=== PATIENT | male | born 1955 | race Caucasian/White ===

== ENCOUNTER 2018-04-06 23:47 | Inpatient (IN) | payer OTHER ==
[~2018-04-06] VITALS: Ht 177.8 cm; Wt 108.9 kg
[~2018-04-06 23:47] MED LIST: AMBEREN PO; ASPIRIN EC81 M1 PO; ASPIRIN325; BENAZEPRIL HCL5 MG PO; DIFLUCAN100 MG PO; GLUMETZA1000 PO; LANTUS SUBQ; LEVAQUIN 500 M500 M2 PO; LEVOTHYROXIN0.112 M1; MUCINEX DM TABL1 TA1 PO; NEURONTIN 300300 M1 PO; NEURONTIN600 MG PO; NOVOLOG100 UNIT/1 SUBQ; PROTONIX40 M1 PO; TIROSINT100 MCG PO; TRAMADOL 50 MG50 MG PO; VICODIN 5-5001 EACH PO; ZOFRAN ODT4 MG PO
[2018-04-06 23:51] VITALS: BP 175/88
[2018-04-07] MEDS ORDERED: PRILOSEC 20 MG20 MG PO
[2018-04-07] MEDS ORDERED: WELLBUTRIN XL300 MG PO (00:01)
[2018-04-07] MEDS ORDERED: XANAX 0.5 MG0.5 MG PO (00:02)
[2018-04-07 00:26] LABS: ABSOLUTE BASOPHILS 0.2 thou/uL (0.0-0.2); ABSOLUTE EOSINOPHILS 0.4 thou/uL (0.0-0.7); ABSOLUTE LYMPHOCYTES 2.5 thou/uL (0.8-5.3); ABSOLUTE MONOCYTES 0.9 thou/uL (0.0-1.2); ABSOLUTE NEUTROPHILS 6.3 thou/uL (1.6-8.1); BASOPHILS 1.5 %; EOSINOPHILS 3.7 %; HEMATOCRIT 49.3 % (42.0-52.0); HEMOGLOBIN 16.9 gm/dL (14.0-18.0); LYMPHOCYTES 24.2 %; MCH 30.4 pg (26.0-34.0); MCHC 34.4 g/dL (28.0-37.0); MCV 88.3 fL (80.0-100.0); MONOCYTES 8.7 %; MPV 8.9 fl. (7.2-11.1); NUCLEATED RBCS 0 /100WBC; PLATELET COUNT* 291 thou/uL (150-400); POLYS 61.9 %; RBC 5.58 mil/uL (4.50-6.00); RDW-CV 13.3 % (10.5-14.5); WBC 10.3 thou/uL (4.0-11.0)
[2018-04-07 00:31] LABS: CALCIUM 9.1 mg/dL (8.5-10.1); CREATININE 1.2 mg/dL (0.6-1.3); POTASSIUM 3.7 mmol/L (3.5-5.1)
[2018-04-07 00:32] LABS: INR 0.9; PROTIME 9.6 Seconds (9.20-11.50)
[2018-04-07 00:35] LABS: ALBUMIN 3.7 g/dL (3.4-5.0); TOTAL BILIRUBIN 0.2 mg/dL (<0.1-1.0); TOTAL PROTEIN 7.1 g/dL (6.4-8.2)
[2018-04-07 01:17] LABS: URINE BILIRUBIN NEGATIVE (Negative); URINE BLOOD 3+ (Negative); URINE CLARITY TURBID; URINE COLOR RED; URINE GLUCOSE-RANDOM 1+ (Negative); URINE KETONES TRACE (Negative); URINE LEUKOCYTES-REFLEX TRACE (Negative); URINE PROTEIN 3+ (Negative); URINE SPECIFIC GRAVITY 1.025 (1.005-1.030)
[2018-04-07 01:19] LABS: URINE NITRITE-REFLEX POSITIVE (Negative)
[2018-04-07 01:22] LABS: CASTS None Seen /LPF (None Seen); MUCUS None Seen strn/LPF (None Seen); SQUAMOUS NONE SEEN /LPF (0-3); URINE WBC-REFLEX None Seen /HPF (0-5)
[2018-04-07 01:23] LABS: BACTERIA-REFLEX None Seen /HPF (None Seen); CRYSTALS None Seen /LPF (None Seen); URINE RBC >20 Many /HPF (0-2)
[2018-04-07 03:21] VITALS: BP 153/69
[2018-04-07 04:29] VITALS: BP 159/82
[2018-04-07 08:00] VITALS: BP 155/82
[2018-04-07 08:51] LABS: HEMATOCRIT 43.3 % (42.0-52.0); MCH 30.3 pg (26.0-34.0); MCHC 34.3 g/dL (28.0-37.0); MCV 88.1 fL (80.0-100.0); MPV 8.3 fl. (7.2-11.1); RBC 4.91 mil/uL (4.50-6.00); RDW-CV 13.2 % (10.5-14.5); WBC 8.7 thou/uL (4.0-11.0)
[2018-04-07 08:56] LABS: CALCIUM 8.1 mg/dL (8.5-10.1); CREATININE 1.1 mg/dL (0.6-1.3); POTASSIUM 3.7 mmol/L (3.5-5.1)
[2018-04-07 08:58] LABS: HEMOGLOBIN 14.9 gm/dL (14.0-18.0)
[2018-04-07 20:45] VITALS: BP 150/73
[2018-04-08 04:32] LABS: ABSOLUTE BASOPHILS 0.1 thou/uL (0.0-0.2); ABSOLUTE EOSINOPHILS 0.4 thou/uL (0.0-0.7); ABSOLUTE LYMPHOCYTES 1.8 thou/uL (0.8-5.3); ABSOLUTE MONOCYTES 0.8 thou/uL (0.0-1.2); EOSINOPHILS 5.2 %; HEMOGLOBIN 14.8 gm/dL (14.0-18.0); LYMPHOCYTES 22.8 %; MCH 29.9 pg (26.0-34.0); MCHC 33.6 g/dL (28.0-37.0); MONOCYTES 9.6 %; MPV 8.8 fl. (7.2-11.1); NUCLEATED RBCS 0 /100WBC; PLATELET COUNT* 246 thou/uL (150-400); POLYS 61.4 %; RBC 4.95 mil/uL (4.50-6.00); RDW-CV 13.1 % (10.5-14.5); WBC 8.1 thou/uL (4.0-11.0)
[2018-04-08 04:41] LABS: CALCIUM 8.6 mg/dL (8.5-10.1); CREATININE 1.1 mg/dL (0.6-1.3); POTASSIUM 4.5 mmol/L (3.5-5.1)
[2018-04-08 08:40] VITALS: BP 156/88
[2018-04-08 10:41] VITALS: BP 156/88
[2018-04-08 10:45] VITALS: BP 156/88
== END 2018-04-08 11:55 | disposition home or self-care (01) | DRG 690 ==
LOC: M.ERS 23:47 → M.ORTHSURG 04-07 02:04 → M.TBA-ER 04-07 02:04 → M.ORTHSURG 04-07 03:28
PROVIDERS: Emergency Medicine; Internal Medicine; Nurse Practitioner Adult Health; ADMIT Family Medicine
DX: N30.91 Cystitis, unspecified with hematuria (principal); E86.0 Dehydration; E78.5 Hyperlipidemia, unspecified; E11.40 Type 2 diabetes mellitus with diabetic neuropathy, unspecified; I10 Essential (primary) hypertension; Z79.899 Other long term (current) drug therapy; Z79.4 Long term (current) use of insulin; Z85.46 Personal history of malignant neoplasm of prostate; Z87.442 Personal history of urinary calculi; Z79.82 Long term (current) use of aspirin

== ENCOUNTER → 2018-06-09 | Outpatient (CLI) | payer OTHER ==
[~2018-06-09] MED LIST changes: +PRILOSEC 20 MG20 MG PO; +WELLBUTRIN XL300 MG PO; +XANAX 0.5 MG0.5 MG PO
== END ==
LOC: M.WC 09:45
DX: E11.621 Type 2 diabetes mellitus with foot ulcer (principal); L97.512 Non-pressure chronic ulcer of other part of right foot with fat layer exposed; L84 Corns and callosities; E11.42 Type 2 diabetes mellitus with diabetic polyneuropathy; E03.9 Hypothyroidism, unspecified; K21.9 Gastro-esophageal reflux disease without esophagitis; I10 Essential (primary) hypertension; F32.9 Major depressive disorder, single episode, unspecified; F41.9 Anxiety disorder, unspecified; Z87.891 Personal history of nicotine dependence; Z85.46 Personal history of malignant neoplasm of prostate; Z85.038 Personal history of other malignant neoplasm of large intestine; Z79.4 Long term (current) use of insulin; Z79.82 Long term (current) use of aspirin

== ENCOUNTER → 2018-06-23 | Outpatient (CLI) | payer OTHER | LOC: M.WC 04:30 | DX: E11.621 Type 2 diabetes mellitus with foot ulcer (principal); L97.512 Non-pressure chronic ulcer of other part of right foot with fat layer exposed; E11.42 Type 2 diabetes mellitus with diabetic polyneuropathy; E03.9 Hypothyroidism, unspecified; I10 Essential (primary) hypertension; K21.9 Gastro-esophageal reflux disease without esophagitis; F41.9 Anxiety disorder, unspecified; F32.9 Major depressive disorder, single episode, unspecified; Z85.46 Personal history of malignant neoplasm of prostate; Z87.891 Personal history of nicotine dependence; Z85.038 Personal history of other malignant neoplasm of large intestine ==

== ENCOUNTER → 2018-06-30 | Outpatient (CLI) | payer OTHER | LOC: M.WC 07:08 | DX: E11.621 Type 2 diabetes mellitus with foot ulcer (principal); L97.511 Non-pressure chronic ulcer of other part of right foot limited to breakdown of skin; L84 Corns and callosities; E11.42 Type 2 diabetes mellitus with diabetic polyneuropathy; E03.9 Hypothyroidism, unspecified; K21.9 Gastro-esophageal reflux disease without esophagitis; I10 Essential (primary) hypertension; F41.9 Anxiety disorder, unspecified; F32.9 Major depressive disorder, single episode, unspecified; Z87.891 Personal history of nicotine dependence; Z85.038 Personal history of other malignant neoplasm of large intestine; Z85.46 Personal history of malignant neoplasm of prostate ==

== ENCOUNTER → 2018-07-07 | Outpatient (CLI) | payer OTHER | LOC: M.WC 01:53 | DX: E11.621 Type 2 diabetes mellitus with foot ulcer (principal); L97.511 Non-pressure chronic ulcer of other part of right foot limited to breakdown of skin; L84 Corns and callosities; E11.42 Type 2 diabetes mellitus with diabetic polyneuropathy; I10 Essential (primary) hypertension; K21.9 Gastro-esophageal reflux disease without esophagitis; E03.9 Hypothyroidism, unspecified; F41.9 Anxiety disorder, unspecified; F32.9 Major depressive disorder, single episode, unspecified; Z87.891 Personal history of nicotine dependence; Z85.038 Personal history of other malignant neoplasm of large intestine ==

== ENCOUNTER → 2018-07-14 | Outpatient (CLI) | payer OTHER ==
[2018-07-14 09:24] LABS: ABSOLUTE BASOPHILS 0.1 thou/uL (0.0-0.2); ABSOLUTE EOSINOPHILS 0.1 thou/uL (0.0-0.7); BASOPHILS 0.6 %; EOSINOPHILS 0.8 %; HEMATOCRIT 48.9 % (42.0-52.0); HEMOGLOBIN 16.2 gm/dL (14.0-18.0); LYMPHOCYTES 7.6 %; MCHC 33.2 g/dL (28.0-37.0); MCV 87.4 fL (80.0-100.0); MONOCYTES 7.3 %; MPV 8.9 fl. (7.2-11.1); NUCLEATED RBCS 0 /100WBC; PLATELET COUNT* 257 thou/uL (150-400); POLYS 83.7 %; RDW-CV 13.3 % (10.5-14.5); WBC 13.2 thou/uL (4.0-11.0)
[2018-07-14 09:31] LABS: CALCIUM 9.1 mg/dL (8.5-10.1); CREATININE 1.5 mg/dL (0.6-1.3); POTASSIUM 4.1 mmol/L (3.5-5.1)
[2018-07-14 09:44] LABS: ALBUMIN 3.4 g/dL (3.4-5.0); TOTAL BILIRUBIN 0.4 mg/dL (<0.1-1.0); TOTAL PROTEIN 6.9 g/dL (6.4-8.2)
[2018-07-14 18:10] LABS: GLYCOHEMOGLOBIN (HGB A1C) 8.5 % (4.8-5.6)
== END ==
LOC: M.WC 04:57
PROVIDERS: Emergency Medicine Undersea and Hyperbaric Medicine
DX: E11.621 Type 2 diabetes mellitus with foot ulcer (principal); L97.511 Non-pressure chronic ulcer of other part of right foot limited to breakdown of skin; L84 Corns and callosities; E03.9 Hypothyroidism, unspecified; I10 Essential (primary) hypertension; K21.9 Gastro-esophageal reflux disease without esophagitis; E11.42 Type 2 diabetes mellitus with diabetic polyneuropathy; F41.9 Anxiety disorder, unspecified; F32.9 Major depressive disorder, single episode, unspecified; Z87.891 Personal history of nicotine dependence; Z85.46 Personal history of malignant neoplasm of prostate; Z85.038 Personal history of other malignant neoplasm of large intestine

== ENCOUNTER → 2018-07-21 | Outpatient (CLI) | payer OTHER | LOC: M.WC 05:04 | DX: E11.621 Type 2 diabetes mellitus with foot ulcer (principal); L97.512 Non-pressure chronic ulcer of other part of right foot with fat layer exposed; L84 Corns and callosities; E11.42 Type 2 diabetes mellitus with diabetic polyneuropathy; E03.9 Hypothyroidism, unspecified; E66.9 Obesity, unspecified; K21.9 Gastro-esophageal reflux disease without esophagitis; I10 Essential (primary) hypertension; F41.9 Anxiety disorder, unspecified; F32.9 Major depressive disorder, single episode, unspecified; Z85.038 Personal history of other malignant neoplasm of large intestine; Z85.46 Personal history of malignant neoplasm of prostate; Z87.891 Personal history of nicotine dependence; Z68.35 Body mass index [BMI] 35.0-35.9, adult ==

== ENCOUNTER → 2018-07-28 | Outpatient (CLI) | payer OTHER | LOC: M.WC 05:03 | DX: E11.621 Type 2 diabetes mellitus with foot ulcer (principal); L97.511 Non-pressure chronic ulcer of other part of right foot limited to breakdown of skin; E11.42 Type 2 diabetes mellitus with diabetic polyneuropathy; I10 Essential (primary) hypertension; L84 Corns and callosities; K21.9 Gastro-esophageal reflux disease without esophagitis; E03.9 Hypothyroidism, unspecified; F41.9 Anxiety disorder, unspecified; F32.9 Major depressive disorder, single episode, unspecified; Z85.46 Personal history of malignant neoplasm of prostate; Z85.038 Personal history of other malignant neoplasm of large intestine; Z87.891 Personal history of nicotine dependence ==

== ENCOUNTER → 2018-08-04 | Outpatient (CLI) | payer OTHER | LOC: M.WC 07:00 | DX: E11.621 Type 2 diabetes mellitus with foot ulcer (principal); L97.511 Non-pressure chronic ulcer of other part of right foot limited to breakdown of skin; L84 Corns and callosities; E11.42 Type 2 diabetes mellitus with diabetic polyneuropathy; E03.9 Hypothyroidism, unspecified; K21.9 Gastro-esophageal reflux disease without esophagitis; I10 Essential (primary) hypertension; F41.9 Anxiety disorder, unspecified; F32.9 Major depressive disorder, single episode, unspecified; Z87.891 Personal history of nicotine dependence; Z85.46 Personal history of malignant neoplasm of prostate; Z85.038 Personal history of other malignant neoplasm of large intestine ==

== ENCOUNTER → 2018-08-11 | Outpatient (CLI) | payer OTHER | LOC: M.WC 05:37 | DX: E11.621 Type 2 diabetes mellitus with foot ulcer (principal); L97.511 Non-pressure chronic ulcer of other part of right foot limited to breakdown of skin; L84 Corns and callosities; E11.42 Type 2 diabetes mellitus with diabetic polyneuropathy; E03.9 Hypothyroidism, unspecified; K21.9 Gastro-esophageal reflux disease without esophagitis; I10 Essential (primary) hypertension; F41.9 Anxiety disorder, unspecified; F32.9 Major depressive disorder, single episode, unspecified; Z85.038 Personal history of other malignant neoplasm of large intestine; Z85.46 Personal history of malignant neoplasm of prostate; Z87.891 Personal history of nicotine dependence ==

== ENCOUNTER → 2018-08-14 | Outpatient (CLI) | payer OTHER | LOC: M.WC 04:33 | DX: E11.621 Type 2 diabetes mellitus with foot ulcer (principal); L97.511 Non-pressure chronic ulcer of other part of right foot limited to breakdown of skin; E11.42 Type 2 diabetes mellitus with diabetic polyneuropathy; I10 Essential (primary) hypertension; L84 Corns and callosities; K21.9 Gastro-esophageal reflux disease without esophagitis; E03.9 Hypothyroidism, unspecified; F32.9 Major depressive disorder, single episode, unspecified; F41.9 Anxiety disorder, unspecified; Z87.891 Personal history of nicotine dependence; Z85.038 Personal history of other malignant neoplasm of large intestine ==

== ENCOUNTER → 2018-08-18 | Outpatient (CLI) | payer OTHER | LOC: M.WC 05:22 | DX: E11.621 Type 2 diabetes mellitus with foot ulcer (principal); L97.511 Non-pressure chronic ulcer of other part of right foot limited to breakdown of skin; E11.42 Type 2 diabetes mellitus with diabetic polyneuropathy; E66.9 Obesity, unspecified; E03.9 Hypothyroidism, unspecified; I10 Essential (primary) hypertension; L84 Corns and callosities; K21.9 Gastro-esophageal reflux disease without esophagitis; F41.9 Anxiety disorder, unspecified; F32.9 Major depressive disorder, single episode, unspecified; Z85.038 Personal history of other malignant neoplasm of large intestine; Z85.46 Personal history of malignant neoplasm of prostate; Z68.35 Body mass index [BMI] 35.0-35.9, adult; Z87.891 Personal history of nicotine dependence ==

== ENCOUNTER → 2018-08-31 | Outpatient (CLI) | payer OTHER | LOC: M.WC 04:32 | DX: E11.621 Type 2 diabetes mellitus with foot ulcer (principal); L97.511 Non-pressure chronic ulcer of other part of right foot limited to breakdown of skin; L84 Corns and callosities; E11.42 Type 2 diabetes mellitus with diabetic polyneuropathy; E03.9 Hypothyroidism, unspecified; I10 Essential (primary) hypertension; K21.9 Gastro-esophageal reflux disease without esophagitis; F41.9 Anxiety disorder, unspecified; F32.9 Major depressive disorder, single episode, unspecified; Z85.038 Personal history of other malignant neoplasm of large intestine; Z85.46 Personal history of malignant neoplasm of prostate; Z87.891 Personal history of nicotine dependence ==

== ENCOUNTER → 2018-09-08 | Outpatient (CLI) | payer OTHER | LOC: M.WC 05:24 | DX: E11.621 Type 2 diabetes mellitus with foot ulcer (principal); L97.511 Non-pressure chronic ulcer of other part of right foot limited to breakdown of skin; L84 Corns and callosities; E11.42 Type 2 diabetes mellitus with diabetic polyneuropathy; E03.9 Hypothyroidism, unspecified; I10 Essential (primary) hypertension; K21.9 Gastro-esophageal reflux disease without esophagitis; F41.9 Anxiety disorder, unspecified; F32.9 Major depressive disorder, single episode, unspecified; Z85.46 Personal history of malignant neoplasm of prostate; Z85.038 Personal history of other malignant neoplasm of large intestine; Z87.891 Personal history of nicotine dependence ==

== ENCOUNTER → 2018-09-15 | Outpatient (CLI) | payer OTHER | LOC: M.WC 05:13 | DX: E11.621 Type 2 diabetes mellitus with foot ulcer (principal); L97.511 Non-pressure chronic ulcer of other part of right foot limited to breakdown of skin; L84 Corns and callosities; E11.42 Type 2 diabetes mellitus with diabetic polyneuropathy; E03.9 Hypothyroidism, unspecified; I10 Essential (primary) hypertension; K21.9 Gastro-esophageal reflux disease without esophagitis; F32.9 Major depressive disorder, single episode, unspecified; Z85.46 Personal history of malignant neoplasm of prostate; Z87.891 Personal history of nicotine dependence; Z85.038 Personal history of other malignant neoplasm of large intestine ==

== ENCOUNTER → 2018-09-22 | Outpatient (CLI) | payer OTHER | LOC: M.WC 04:57 | DX: E11.621 Type 2 diabetes mellitus with foot ulcer (principal); L97.511 Non-pressure chronic ulcer of other part of right foot limited to breakdown of skin; E11.42 Type 2 diabetes mellitus with diabetic polyneuropathy; L84 Corns and callosities; I10 Essential (primary) hypertension; E03.9 Hypothyroidism, unspecified; K21.9 Gastro-esophageal reflux disease without esophagitis; F41.9 Anxiety disorder, unspecified; F32.9 Major depressive disorder, single episode, unspecified; Z85.038 Personal history of other malignant neoplasm of large intestine; Z85.46 Personal history of malignant neoplasm of prostate; Z87.891 Personal history of nicotine dependence ==

== ENCOUNTER → 2018-09-29 | Outpatient (CLI) | payer OTHER | LOC: M.WC 05:15 | DX: E11.621 Type 2 diabetes mellitus with foot ulcer (principal); L97.511 Non-pressure chronic ulcer of other part of right foot limited to breakdown of skin; E11.42 Type 2 diabetes mellitus with diabetic polyneuropathy; E03.9 Hypothyroidism, unspecified; I10 Essential (primary) hypertension; K21.9 Gastro-esophageal reflux disease without esophagitis; F41.9 Anxiety disorder, unspecified; F32.9 Major depressive disorder, single episode, unspecified; Z85.46 Personal history of malignant neoplasm of prostate; Z87.891 Personal history of nicotine dependence; Z85.038 Personal history of other malignant neoplasm of large intestine ==

== ENCOUNTER → 2018-10-06 | Outpatient (CLI) | payer OTHER | LOC: M.WC 05:13 | DX: E11.621 Type 2 diabetes mellitus with foot ulcer (principal); L97.511 Non-pressure chronic ulcer of other part of right foot limited to breakdown of skin; L84 Corns and callosities; E11.42 Type 2 diabetes mellitus with diabetic polyneuropathy; E03.9 Hypothyroidism, unspecified; K21.9 Gastro-esophageal reflux disease without esophagitis; I10 Essential (primary) hypertension; F41.9 Anxiety disorder, unspecified; F32.9 Major depressive disorder, single episode, unspecified; Z85.038 Personal history of other malignant neoplasm of large intestine; Z85.46 Personal history of malignant neoplasm of prostate; Z87.891 Personal history of nicotine dependence ==

== ENCOUNTER → 2018-10-07 | Outpatient (CLI) | payer OTHER | LOC: M.WC 08:17 | DX: E11.621 Type 2 diabetes mellitus with foot ulcer (principal); L97.511 Non-pressure chronic ulcer of other part of right foot limited to breakdown of skin; E11.42 Type 2 diabetes mellitus with diabetic polyneuropathy; L84 Corns and callosities; I10 Essential (primary) hypertension; E03.9 Hypothyroidism, unspecified; K21.9 Gastro-esophageal reflux disease without esophagitis; F32.9 Major depressive disorder, single episode, unspecified; F41.9 Anxiety disorder, unspecified; Z85.038 Personal history of other malignant neoplasm of large intestine; Z87.891 Personal history of nicotine dependence; Z85.46 Personal history of malignant neoplasm of prostate ==

== ENCOUNTER → 2018-10-13 | Outpatient (CLI) | payer OTHER | LOC: M.WC 04:48 | DX: E11.621 Type 2 diabetes mellitus with foot ulcer (principal); L97.511 Non-pressure chronic ulcer of other part of right foot limited to breakdown of skin; L84 Corns and callosities; E11.42 Type 2 diabetes mellitus with diabetic polyneuropathy; E03.9 Hypothyroidism, unspecified; E66.9 Obesity, unspecified; I10 Essential (primary) hypertension; K21.9 Gastro-esophageal reflux disease without esophagitis; F41.9 Anxiety disorder, unspecified; F32.9 Major depressive disorder, single episode, unspecified; Z85.038 Personal history of other malignant neoplasm of large intestine; Z85.46 Personal history of malignant neoplasm of prostate; Z68.35 Body mass index [BMI] 35.0-35.9, adult; Z87.891 Personal history of nicotine dependence ==

== ENCOUNTER → 2018-10-15 | Outpatient (CLI) | payer OTHER | LOC: M.WC 08:20 | DX: E11.621 Type 2 diabetes mellitus with foot ulcer (principal); L97.511 Non-pressure chronic ulcer of other part of right foot limited to breakdown of skin; L84 Corns and callosities; E11.42 Type 2 diabetes mellitus with diabetic polyneuropathy; E03.9 Hypothyroidism, unspecified; K21.9 Gastro-esophageal reflux disease without esophagitis; I10 Essential (primary) hypertension; F41.9 Anxiety disorder, unspecified; F32.9 Major depressive disorder, single episode, unspecified; Z85.46 Personal history of malignant neoplasm of prostate; Z85.038 Personal history of other malignant neoplasm of large intestine; Z87.891 Personal history of nicotine dependence ==

== ENCOUNTER → 2018-10-27 | Outpatient (CLI) | payer OTHER | LOC: M.WC 04:34 | DX: E11.621 Type 2 diabetes mellitus with foot ulcer (principal); L97.511 Non-pressure chronic ulcer of other part of right foot limited to breakdown of skin; L84 Corns and callosities; E11.42 Type 2 diabetes mellitus with diabetic polyneuropathy; E03.9 Hypothyroidism, unspecified; I10 Essential (primary) hypertension; K21.9 Gastro-esophageal reflux disease without esophagitis; F41.9 Anxiety disorder, unspecified; F32.9 Major depressive disorder, single episode, unspecified; Z87.891 Personal history of nicotine dependence; Z85.46 Personal history of malignant neoplasm of prostate; Z85.038 Personal history of other malignant neoplasm of large intestine ==

== ENCOUNTER → 2018-11-03 | Outpatient (CLI) | payer OTHER | LOC: M.WC 05:16 | DX: E11.621 Type 2 diabetes mellitus with foot ulcer (principal); L97.511 Non-pressure chronic ulcer of other part of right foot limited to breakdown of skin; E11.42 Type 2 diabetes mellitus with diabetic polyneuropathy; E03.9 Hypothyroidism, unspecified; I10 Essential (primary) hypertension; K21.9 Gastro-esophageal reflux disease without esophagitis; F41.9 Anxiety disorder, unspecified; F32.9 Major depressive disorder, single episode, unspecified; Z85.038 Personal history of other malignant neoplasm of large intestine; Z85.46 Personal history of malignant neoplasm of prostate; Z87.891 Personal history of nicotine dependence ==

== ENCOUNTER → 2018-11-10 | Outpatient (CLI) | payer OTHER | LOC: M.WC 05:26 | DX: E11.621 Type 2 diabetes mellitus with foot ulcer (principal); L97.512 Non-pressure chronic ulcer of other part of right foot with fat layer exposed; L84 Corns and callosities; E11.42 Type 2 diabetes mellitus with diabetic polyneuropathy; E03.9 Hypothyroidism, unspecified; K21.9 Gastro-esophageal reflux disease without esophagitis; I10 Essential (primary) hypertension; F41.9 Anxiety disorder, unspecified; F32.9 Major depressive disorder, single episode, unspecified; Z85.46 Personal history of malignant neoplasm of prostate; Z85.038 Personal history of other malignant neoplasm of large intestine; Z87.891 Personal history of nicotine dependence ==

== ENCOUNTER → 2018-11-13 | Outpatient (CLI) | payer OTHER | LOC: M.MRI 07:08 | DX: E11.621 Type 2 diabetes mellitus with foot ulcer (principal); L97.519 Non-pressure chronic ulcer of other part of right foot with unspecified severity; R60.0 Localized edema ==

== ENCOUNTER → 2018-11-18 | Outpatient (CLI) | payer OTHER | LOC: M.WC 11-17 04:53 | DX: E11.621 Type 2 diabetes mellitus with foot ulcer (principal); L97.511 Non-pressure chronic ulcer of other part of right foot limited to breakdown of skin; L84 Corns and callosities; E11.42 Type 2 diabetes mellitus with diabetic polyneuropathy; E03.9 Hypothyroidism, unspecified; I10 Essential (primary) hypertension; K21.9 Gastro-esophageal reflux disease without esophagitis; F41.9 Anxiety disorder, unspecified; F32.9 Major depressive disorder, single episode, unspecified; Z85.038 Personal history of other malignant neoplasm of large intestine; Z85.46 Personal history of malignant neoplasm of prostate; Z87.891 Personal history of nicotine dependence ==

== ENCOUNTER → 2018-11-24 | Outpatient (CLI) | payer OTHER | LOC: M.WC 05:08 | DX: E11.621 Type 2 diabetes mellitus with foot ulcer (principal); L97.511 Non-pressure chronic ulcer of other part of right foot limited to breakdown of skin; L84 Corns and callosities; E11.42 Type 2 diabetes mellitus with diabetic polyneuropathy; E03.9 Hypothyroidism, unspecified; K21.9 Gastro-esophageal reflux disease without esophagitis; I10 Essential (primary) hypertension; F32.9 Major depressive disorder, single episode, unspecified; F41.9 Anxiety disorder, unspecified; Z87.891 Personal history of nicotine dependence; Z85.038 Personal history of other malignant neoplasm of large intestine; Z85.46 Personal history of malignant neoplasm of prostate ==

== ENCOUNTER → 2018-11-27 | Outpatient (CLI) | payer OTHER | LOC: M.WC 09:05 | DX: E11.621 Type 2 diabetes mellitus with foot ulcer (principal); L97.511 Non-pressure chronic ulcer of other part of right foot limited to breakdown of skin; L84 Corns and callosities; E11.42 Type 2 diabetes mellitus with diabetic polyneuropathy; E03.9 Hypothyroidism, unspecified; I10 Essential (primary) hypertension; J45.909 Unspecified asthma, uncomplicated; K21.9 Gastro-esophageal reflux disease without esophagitis; F41.9 Anxiety disorder, unspecified; F32.9 Major depressive disorder, single episode, unspecified; Z85.46 Personal history of malignant neoplasm of prostate; Z85.038 Personal history of other malignant neoplasm of large intestine; Z87.891 Personal history of nicotine dependence ==

== ENCOUNTER → 2018-12-01 | Outpatient (CLI) | payer OTHER | LOC: M.WC 05:38 | DX: E11.621 Type 2 diabetes mellitus with foot ulcer (principal); L97.511 Non-pressure chronic ulcer of other part of right foot limited to breakdown of skin; L84 Corns and callosities; E11.42 Type 2 diabetes mellitus with diabetic polyneuropathy; E03.9 Hypothyroidism, unspecified; K21.9 Gastro-esophageal reflux disease without esophagitis; I10 Essential (primary) hypertension; F41.9 Anxiety disorder, unspecified; F32.9 Major depressive disorder, single episode, unspecified; Z85.038 Personal history of other malignant neoplasm of large intestine; Z87.891 Personal history of nicotine dependence; Z85.46 Personal history of malignant neoplasm of prostate ==

== ENCOUNTER → 2018-12-04 | Outpatient (CLI) | payer OTHER | LOC: M.ULTRA 12:53 | DX: E11.621 Type 2 diabetes mellitus with foot ulcer (principal); L97.519 Non-pressure chronic ulcer of other part of right foot with unspecified severity ==

== ENCOUNTER → 2018-12-08 | Outpatient (CLI) | payer OTHER | LOC: M.WC 05:18 | DX: E11.621 Type 2 diabetes mellitus with foot ulcer (principal); L97.511 Non-pressure chronic ulcer of other part of right foot limited to breakdown of skin; L84 Corns and callosities; E11.42 Type 2 diabetes mellitus with diabetic polyneuropathy; E03.9 Hypothyroidism, unspecified; I10 Essential (primary) hypertension; K21.9 Gastro-esophageal reflux disease without esophagitis; F41.9 Anxiety disorder, unspecified; F32.9 Major depressive disorder, single episode, unspecified; Z85.46 Personal history of malignant neoplasm of prostate; Z87.891 Personal history of nicotine dependence; Z85.038 Personal history of other malignant neoplasm of large intestine ==

== ENCOUNTER 2020-10-31 17:54 | Observation (INO) | payer OTHER ==
[~2020-10-31] VITALS: Ht 177.8 cm; Wt 108.9 kg
--- NOTE | ~2020-10-31 | CON ---
[address] [address] CONSULTATION Name: RANJIT DEGROOT Room: [address] Erlinda Perez#: [id number] Admission: 10/31/20 Attend Phys: Fadumo Delgado Discharge: 11/01/20 Date of : 55 Report #: [id number] THIS REPORT FOR: cc: Ortega Reyes MD, Matthew W. MD Khosla, Parveen K. MD ~ DATE OF CONSULTATION: 11/01/2020 HISTORY OF PRESENT ILLNESS: This is a 65-year-old male patient who was seen by me for an episode of diplopia, dizziness and nausea. He had similar episode before. He had a prior history of migraine that was some time ago. He does not get migraine very often now. He is a diabetic. It is not clear what his blood sugar was when this episode happened. REVIEW OF SYSTEMS: Positive for diabetes, prostatic carcinoma, radical prostatectomy, history of ulcerative colitis with ileostomy, knee surgery, pilonidal cyst, thyroid removal, hyperlipidemia. He said he has a neuropathy, which has been attributed to diabetes. He has a history of sleep apnea, hypertension, foot surgery. This was a relevant 14-point review of system in this patient. PAST MEDICAL HISTORY: Similar episode in the past. FAMILY HISTORY: Unremarkable. SOCIAL HISTORY: Does not smoke or drink alcohol. PHYSICAL EXAMINATION: When he is seen by me, he was alert, responsive, able to follow simple and complex command. Cranial nerve examination was unremarkable on my examination. Neuromuscular examination as checked for strength, sensation, reflexes and tone was symmetrical. There is no meningeal sign. There is no carotid bruit. His GFR was somewhat low, so we have gotten a stat MRI and MRA and subsequently had a carotid Doppler, they were all negative. He takes baby aspirin. On examination, he did not have any cardiac abnormality. There was no respiratory difficulty. Blood pressure fluctuated and at one time, the blood pressure was low at 87. IMPRESSION AND PLAN: It is unlikely there is any neurological etiology for the patient's symptoms. His systemic problem need to be addressed. He becomes hypotensive that need to be addressed. He had an ileostomy, so he should have a B12 level done with the primary. He has hyperlipidemia, but he says he can take statin. I think he needs to talk to his family doctor [place] [address] CONSULTATION Name: RANJIT DEGROOT Room: [address] Erlinda Perez#: [id number] Admission: 10/31/20 Attend Phys: Fadumo Delgado Discharge: 11/01/20 Date of : 55 Report #: [id number] alternative statin. Much change in B12 level is already done and he does not need one. Main workup I will suggest is systemic, checking his blood pressure and hypertension, but I do not think neurologically anything needs to be done. Thank you very much for this referral. If you have any questions, please feel free to contact me. By: [id number] Alonzo MD /nt
[2020-10-31 18:09] VITALS: BP 147/60
[2020-10-31] MEDS ORDERED: TROSPIUM CHLORI20 MG PO (18:16)
[2020-10-31 18:45] LABS: ABSOLUTE BASOPHILS 0.1 thou/uL (0.0-0.2); ABSOLUTE EOSINOPHILS 0.4 thou/uL (0.0-0.7); ABSOLUTE LYMPHOCYTES 2.1 thou/uL (0.8-5.3); ABSOLUTE MONOCYTES 0.8 thou/uL (0.0-1.2); ABSOLUTE NEUTROPHILS 4.5 thou/uL (1.6-8.1); BASOPHILS 1.3 %; EOSINOPHILS 5.2 %; HEMOGLOBIN 14.1 gm/dL (14.0-18.0); LYMPHOCYTES 26.5 %; MCH 29.8 pg (26.0-34.0); MCHC 34.3 g/dL (28.0-37.0); MCV 86.8 fL (80.0-100.0); MPV 9.1 fl. (7.2-11.1); NUCLEATED RBCS 0 /100WBC; PLATELET COUNT* 217 thou/uL (150-400); RBC 4.73 mil/uL (4.50-6.00); RDW-CV 12.8 % (10.5-14.5)
[2020-10-31 18:57] LABS: CALCIUM 8.9 mg/dL (8.5-10.1); CREATININE 1.7 mg/dL (0.6-1.3); POTASSIUM 4.5 mmol/L (3.5-5.1)
[2020-10-31 19:01] LABS: ALBUMIN 3.6 g/dL (3.4-5.0); TOTAL BILIRUBIN 0.4 mg/dL (<0.1-1.0); TOTAL PROTEIN 6.7 g/dL (6.4-8.2)
[2020-10-31 19:40] LABS: URINE BILIRUBIN NEGATIVE (Negative); URINE BLOOD NEGATIVE (Negative); URINE CLARITY CLEAR; URINE COLOR YELLOW; URINE GLUCOSE-RANDOM TRACE (Negative); URINE KETONES NEGATIVE (Negative); URINE LEUKOCYTES NEGATIVE (Negative); URINE NITRITE NEGATIVE (Negative); URINE PROTEIN NEGATIVE (Negative); URINE SPECIFIC GRAVITY >= 1.030 (1.005-1.030); URINE UROBILINOGEN 0.2 E.U./dl (0.2-1.0)
[2020-10-31 22:15] VITALS: BP 129/43
[2020-10-31] MEDS ORDERED: VICODIN HP 10-1 EAC1 PO (23:19)
[2020-10-31] MEDS ORDERED: GABAPENTIN600 M1 PO (23:21)
[2020-10-31] MEDS ORDERED: LANTUS SUBQ (23:24)
[2020-11-01] VITALS: BP 159/62
[2020-11-01 04:41] VITALS: BP 127/51
[2020-11-01 08:00] VITALS: BP 133/58
--- NOTE | 2020-11-01 08:06 | NUR ---
RECIEVED REPORT FROM ED RN. PT A&OX4. VSS. DERMATOLOGY PROCEDURAL PHYSICIAN IN PLACE. ADMISSION HISTORY & PHYSICAL ASSESSMENT COMPLETED AND CHARTED. PT ON RA. PT TRACING SR/PAC ON TELE. PT UPSTANDBY. NIH CHARTED. PT COMPLAINED OF HANDS & FEET PAIN-MED GIVEN PER MAR. CALL LIGHT WITHIN REACH.
[2020-11-01 08:59] LABS: CHOLESTEROL 193 mg/dL (<200); HDL CHOLESTEROL 31 mg/dL (>40); LDL CHOLESTEROL 118 mg/dL (<100); SERUM ASSESSMENT Clear; TC:HDL 6.2 Ratio (Not establshd); TRIGLYCERIDE 221 mg/dL (<150); VLDL 44 mg/dL (<40)
[2020-11-01 12:00] VITALS: BP 87/51
--- NOTE | 2020-11-01 12:14 | EKG ---
[place] [address] ELECTROCARDIOGRAM REPORT Name: RANJIT DEGROOT Room: [address] M.R.#: [id number] Admission: 10/31/20 Attend Phys: Olvin Gallegos Discharge: Date of : 55 Date of Service: 10/31/201812 Report #: [id number] THIS REPORT FOR: //name// [facility] ED Test Date: 2020-10-31 Test Time: 18:13:50 Pat Name: RANJIT DEGROOT Department: Room: [facility] Gender: M Cmo & President: LOYDA : 1955 Requested By: Deejay Suarez Order Number: [id number] MD: Miguel Interiano Measurements Intervals Winston Rate: 72 P: 53 IL: 172 QRS: 19 QRSD: 98 T: 8 QT: 387 QTc: 424 Interpretive Statements Sinus rhythm Ventricular trigeminy Borderline low voltage, extremity leads Compared to ECG 08/05/2014 20:40:56 Ventricular premature complex(es) now present Electronically Signed On 11-01-2020 12:14:33 CDT by Miguel Interiano [email or web address] <ELECTRONICALLY SIGNED> By: Miguel Interiano MD, [facility] 11/01/20 1214 181 [id number] Miguel Interiano MD, [facility] /EPI
--- NOTE | 2020-11-01 13:57 | 2DMMODE ---
[place] [address] 2 D/M-MODE ECHOCARDIOGRAM Name: YOUSUFJOSE FRANCISCORANJIT HERNANDEZ Room: [address] Erlinda Perez#: [id number] Admission: 10/31/20 Attend Phys: Olvin Gallegos Discharge: Date of : 55 Date of Service: 11/01/20 1357 Report #: [id number] THIS REPORT FOR: cc: Ortega Reyes MD, Matthew W. MD Blick, David R. MD [facility] ~ APPROVED REPORT Study performed: 11/01/2020 10:43:40 EXAM: Comprehensive 2D, Doppler, and color-flow Echocardiogram Patient Location: In-Patient Room #: [facility] Status: routine BSA: 2.26 HR: 82 bpm Rhythm: NSR Other Information Study Quality: Good Indications CVA/TIA Echo Enhancing Agent Indication: Rule out Shunt Agent(s) / Amount(s) Used: Agitated Saline 10 cc 2D Dimensions IVSd: 11.20 (7-11mm) LVOT Diam: 20.17 (18-24mm) LVDd: 48.83 mm PWd: 11.66 (7-11mm) Ascending Ao: 34.53 (22-36mm) LVDs: 25.24 (25-40mm) Aortic Root: 34.80 mm Volumes Left Atrial Volume (Systole) LA ESV Index: 26.30 mL/m2 Aortic Valve AoV Peak Simone.: 1.40 m/s AO Peak Gr.: 7.83 mmHg LVOT Max P.99 mmHg AO Mean Gr.: 4.07 mmHg LVOT Mean P[place]45 [place] [address] 2 D/M-MODE ECHOCARDIOGRAM Name: RANJIT DEGROOT Room: [address] M.R.#: [id number] Admission: 10/31/20 Attend Phys: Olvin Gallegos Discharge: Date of : 55 Date of Service: 11/01/20 1357 Report #: [id number] LVOT Max V: 1.41 m/s AO V2 VTI: 27.12 cm LVOT Mean V: 0.83 m/s JESSICA (VTI): 3.47 cm2 LVOT V1 VTI: 29.41 cm Mitral Valve E/A Ratio: 1.03 MV Decel. Time: 215.48 ms MV E Max Simone.: 1.13 m/s MV PHT: 62.49 ms MVA (PHT): 3.52 cm2 TDI E/Lateral E': 10.27 E/Medial E': 12.56 Medial E' Simone.: 0.09 m/s Lateral E' Simone.: 0.11 m/s Pulmonary Valve PV Peak Simone.: 1.06 m/s PV Peak Gr.: 4.52 mmHg Left Ventricle The left ventricle is normal size. There is normal LV segmental wall motion. Mild concentric left ventricular hypertrophy. Left ventricular systolic function is normal. The left ventricular ejection fraction is within the normal range. LVEF is 60-65%. The left ventricular diastolic function is normal. Right Ventricle The right ventricle is normal size. The right ventricular systolic function is normal. Atria The left atrium size is normal. The interatrial septum is intact with no evidence for an atrial septal defect. The right atrium size is normal. Aortic Valve The Aortic valve is sclerotic. No aortic regurgitation is present. There is no aortic valvular stenosis. Mitral Valve The mitral valve is normal in structure. Trace mitral regurgitation. No evidence of mitral valve stenosis. Tricuspid Valve The tricuspid valve is normal in structure. Unable to assess PA pressure. [place] [address] 2 D/M-MODE ECHOCARDIOGRAM Name: RANJIT DEGROOT Room: [address] M.R.#: [id number] Admission: 10/31/20 Attend Phys: Olvin Gallegos Discharge: Date of : 55 Date of Service: 11/01/20 1357 Report #: [id number] Pulmonic Valve The pulmonary valve is normal in structure. There is no pulmonic valvular regurgitation. Great Vessels The aortic root is normal in size. IVC is normal in size and collapses >50% with inspiration. Pericardium There is no pericardial effusion. <Conclusion> Mild concentric left ventricular hypertrophy. LVEF is 60-65%. The Aortic valve is sclerotic. The interatrial septum is intact with no evidence for an atrial septal defect. <ELECTRONICALLY SIGNED> By: Miguel Interiano MD, FACC 11/01/20 1357 1357 135 Miguel Interiano MD, FACC /INF
--- NOTE | 2020-11-01 14:20 | NUR ---
Pt is A&O. Resides at home with . Independent and active. No DME. No hx of HH or SNF. Therapies to see. Anticipate dc later today or tomorrow, no needs anticipated.
[2020-11-01 16:00] VITALS: BP 152/68
[2020-11-01] MEDS ORDERED: LIPITOR40 MG PO (16:36)
[2020-11-01 18:29] VITALS: BP 87/51
--- NOTE | 2020-11-01 19:40 | NUR ---
patient discharge to home . all discharge instruction completed including discharge medication no issue voived at this time, IV removed befored discharge .
[2020-11-02 19:07] LABS: ANA INTERPRETATION Negative (())
== END 2020-11-01 19:00 | disposition home or self-care (01) ==
LOC: M.ERS 17:54 → M.TBA-ER 19:59 → M.2W 19:59
PROVIDERS: Physician Assistant; Psychiatry & Neurology Neuromuscular Medicine; ADMIT Internal Medicine; ATTEND Internal Medicine
DX: G45.9 Transient cerebral ischemic attack, unspecified (principal); H53.2 Diplopia; Z20.822 Contact with and (suspected) exposure to COVID-19; I95.9 Hypotension, unspecified; I10 Essential (primary) hypertension; E11.9 Type 2 diabetes mellitus without complications; E78.5 Hyperlipidemia, unspecified; G47.30 Sleep apnea, unspecified; Z79.4 Long term (current) use of insulin; Z79.82 Long term (current) use of aspirin; Z79.899 Other long term (current) drug therapy